=== PATIENT | female | born 1995 | race Caucasian/White ===

== ENCOUNTER 2018-09-22 13:04 | Emergency (ER) | payer OTHER ==
[~2018-09-22] VITALS: Ht 167.6 cm; Wt 63.5 kg
[2018-09-22] MEDS ORDERED: VENLAFAXINE HC150 M1 PO (13:13)
[2018-09-22] MEDS ORDERED: ALLEGRA-D 24 H1 EACH PO (13:13)
[2018-09-22] MEDS ORDERED: EPIPEN 2-P0.3 MG/0.3 IM (14:20)
[2018-09-22 14:59] VITALS: BP 120/78
== END 2018-09-22 14:59 | disposition home or self-care (01) ==
LOC: M.ERS 13:04
DX: T78.1XXA Other adverse food reactions, not elsewhere classified, initial encounter (principal); R20.2 Paresthesia of skin; X58.XXXA Exposure to other specified factors, initial encounter; Z88.0 Allergy status to penicillin; Z88.1 Allergy status to other antibiotic agents; Z91.012 Allergy to eggs; Z91.02 Food additives allergy status

== ENCOUNTER 2019-01-13 22:56 | Emergency (ER) | payer BC, OTHER ==
[~2019-01-13] VITALS: Ht 175.3 cm; Wt 85.7 kg
[~2019-01-13 22:56] MED LIST: ALLEGRA-D 24 H1 EACH PO; EPIPEN 2-P0.3 MG/0.3 IM; VENLAFAXINE HC150 M1 PO
[2019-01-14] MEDS ORDERED: FLEXERIL PO (00:06)
[2019-01-14 00:17] VITALS: BP 125/84
== END 2019-01-14 00:18 | disposition home or self-care (01) ==
LOC: M.ERS 22:56
DX: M25.552 Pain in left hip (principal); M54.5 Low back pain; Z88.0 Allergy status to penicillin; Z88.1 Allergy status to other antibiotic agents; Z91.018 Allergy to other foods; V29.49XA Motorcycle driver injured in collision with other motor vehicles in traffic accident, initial encounter; Y93.89 Activity, other specified; Y92.89 Other specified places as the place of occurrence of the external cause; Y99.8 Other external cause status